=== PATIENT | male | born 1960 | race Two or more races ===

== ENCOUNTER → 2017-03-01 | Outpatient (CLI) | payer OTHER ==
--- NOTE | ~2017-03-01 | CR63 ---
[facility] A Service of [place] [facility] RADIOLOGY TEXT RESULTS PATIENT: MILENA SUN LOCATION: [facility] : 64 UNIT #: [id number] AGE: [address]: ANDREAS RICCI APRN SEX: M ORDER DR: [id number] [facility] [address] [place], [place] [address] [id number] O MR#: [id number] Acc #: [id number] NAME: MILENA SUN : 1960 SEX: M STUDY DATE/TIME: 03/01/2017 16:24 UNIT: [facility] ROOM: STUDY DESCRIPTION: CR Chest 2 View Attending Physician: Jarad Ricci M.D. Referring Physician: Jarad Ricci M.D. Ordering Physician: Jarad Ricci M.D. Primary Care Physician: No Primary Care Physician MEDICAL IMAGING REPORT This report is preliminary unless electronic signature is present EXAM Chest x-ray. HISTORY Intermittent shortness of breath for the past several months, but worse over the past 2-3 days. TECHNIQUE 2 views of the chest were obtained. FINDINGS A healed rib fracture is noted on the left. Bony structures are, otherwise, unremarkable. Heart size is normal. The aorta is mildly tortuous. Both lungs are clear with normal vascular markings. IMPRESSION No active disease. Lungs clear. Dictated by... Onur Spears M.D. THIS IS AN ELECTRONICALLY VERIFIED REPORT Onur Spears M.D. at 03/01/2017 10:17 PM CARLOS/juaquin TD: 03/01/2017 18:42 JOB #: [id number] MEDICAL IMAGING REPORT Page 1 of 1 COPY
== END | disposition home or self-care (01) ==
LOC: CRAD 16:09
DX: R06.02 Shortness of breath (principal)
CPT/HCPCS: 71020